=== PATIENT | female | born 1990 | race Caucasian/White ===

== ENCOUNTER 2017-03-06 19:05 | Emergency (ER) | payer OTHER ==
[2017-03-06] MEDS ORDERED: HYDROcodone/APAP 5/325MG 1 TAB TABLET (20:33)
[2017-03-06] MEDS: HYDROcodone/APAP 5/325MG 1 TAB TABLET PO (20:34)
== END 2017-03-06 20:35 | disposition home or self-care (01) ==
LOC: ER 19:05
DX: K04.7 Periapical abscess without sinus (principal); J45.909 Unspecified asthma, uncomplicated; Z91.040 Latex allergy status
CPT/HCPCS: 99283

== ENCOUNTER 2018-07-23 23:29 | Emergency (ER) | payer SELFPAY ==
[~2018-07-23] VITALS: Ht 157.5 cm; Wt 59.0 kg
[~2018-07-23 23:29] MED LIST: ACET-704 PO; AMOX500T PO; NAPR500T8 PO
[2018-07-23 23:36] VITALS: BP 108/65
[2018-07-24 01:01] LABS: BILIRUBIN,URINE SMALL (NEG); CLARITY,URINE CLEAR; COLOR,URINE YELLOW; NITRITE,URINE POSITIVE (NEG); PH,URINE 5.5; PROTEIN,URINE 100 mg/dL (NEG-TRACE)
[2018-07-24 01:07] LABS: BACTERIA,URINE MODERATE /HPF (0-FEW); SQUAMOUS EPITHELIAL CELL,UR FEW /LPF; WBC,URINE TNTC /HPF (0-4)
[2018-07-24 01:38] LABS: U PREG PATIENT NEGATIVE (NEG)
[2018-07-24] MEDS ORDERED: HYDROcodone/APAP 5/325MG 1 TAB TABLET PO ONE (01:45)
[2018-07-24] MEDS ORDERED: ONDANSETRON ODT 4 MG TAB.RAPDIS. PO ONE (01:45)
[2018-07-24] MEDS ORDERED: cefTRIAXone IM 1 GM VIAL IM ONE (01:45)
[2018-07-24] MEDS ORDERED: ONDA4TAB7 PO (01:50)
[2018-07-24] MEDS ORDERED: CEPH-264 PO (01:50)
[2018-07-24] MEDS ORDERED: HYDR-2761 PO (01:50)
[2018-07-24] MEDS ORDERED: SMZ/TMP 800/160MG TABLET. PO ONE (02:00)
--- NOTE | 2018-07-24 02:23 | PHYS DOC ---
Past Medical History Past Medical History: No Pertinent History, Asthma Past Surgical History: No Surgical History Alcohol Use: Occasionally Drug Use: None Adult General Chief Complaint Chief Complaint: BACK PAIN - NO INJURY HPI HPI Patient is a 28 year old female presents with right flank pain, nausea vomiting earlier today. Patient also reports urinary frequency urgency dysuria. Currently on menstrual period. No fever chills or sweats. History of urinary tract infections. Symptoms feel similar. No abdominal pain, tenderness. No other acute symptoms or complaints.[] Review of Systems Review of Systems Review of symptoms as per history of present illness. All other review symptoms are negative. All other systems were reviewed and found to be within normal limits, except as documented in this note. Current Medications Current Medications Current Medications Medications (Trade) Dose Ordered Sig/Sruthi Start Time Stop Time Status Last Admin Dose Admin Acetaminophen/ Hydrocodone Bitart (Lortab 5/325) 1 tab 1X ONCE 07/24/18 01:45 07/24/18 01:46 DC 07/24/18 01:44 1 TAB Ceftriaxone Sodium (Rocephin Im) 1 gm 1X ONCE 07/24/18 01:45 07/24/18 01:46 DC 07/24/18 01:42 1 GM Ondansetron HCl (Zofran Odt) 4 mg 1X ONCE 07/24/18 01:45 07/24/18 01:46 DC 07/24/18 01:44 4 MG Trimethoprim/ Sulfamethoxazole (Bactrim Ds) 1 tab 1X ONCE 07/24/18 02:00 07/24/18 02:01 Cancel Allergies Allergies Allergies Coded Allergies Type Severity Reaction Last Updated Verified latex Allergy Intermediate 02/09/15 Yes tramadol Allergy Intermediate ITCHY 03/06/17 Yes ibuprofen Adverse Reaction Intermediate N/V 03/06/17 Yes Physical Exam Physical Exam Constitutional: Well developed, well nourished, moderate discomfort secondary to apin. [] HENT: Normocephalic, atraumatic, bilateral external ears normal, oropharynx moist, no oral exudates, nose normal. [] Eyes: PERRLA, EOMI, conjunctiva normal, no discharge. [] Neck: Normal range of motion, no tenderness, supple, no stridor. [] Cardiovascular:Heart rate regular rhythm, no murmur [] Lungs & Thorax: Bilateral breath sounds clear to auscultation [] Abdomen: Bowel sounds normal, soft, no tenderness. [] Skin: Warm, dry, no erythema. [] Back: R CVA tenderness. [] Extremities: No tenderness, no cyanosis, no clubbing, ROM intact, no edema. [] Neurologic: Alert and oriented X 3, normal motor function, normal sensory function, no focal deficits noted. [] Psychologic: Affect normal, judgement normal, mood normal. [] Current Patient Data Vital Signs Vital Signs Date Time Temp Pulse Resp B/P (MAP) Pulse Ox O2 Delivery O2 Flow Rate FiO2 07/23/18 23:36 99.5 111 17 108/65 (79) 100 Room Air 99.5 Lab Values Laboratory Tests Test 07/24/18 00:35 Urine Collection Type Unknown Urine Color Yellow Urine Clarity Clear Urine pH 5.5 Urine Specific [place] >=1.030 Urine Protein 100 mg/dL (NEG-TRACE) Urine Glucose (UA) Negative mg/dL (NEG) Urine Ketones (Stick) Trace mg/dL (NEG) Urine Blood Large (NEG) Urine Nitrite Positive (NEG) Urine Bilirubin Small (NEG) Urine Urobilinogen Dipstick 1.0 mg/dL (0.2 mg/dL) Urine Leukocyte Esterase Moderate (NEG) Urine RBC 11-20 /HPF (0-2) Urine WBC Tntc /HPF (0-4) Urine Squamous Epithelial Cells Few /LPF Urine Bacteria Moderate /HPF (0-FEW) Urine Mucus Mod /LPF Urine Test Negative (NEG) EKG EKG [] Radiology/Procedures Radiology/Procedures [] Course & Med Decision Making Course & Med Decision Making Pertinent Labs and Imaging studies reviewed. (See chart for details) [Pain nausea addressed. First dose of antibiotics given in the emergency department. Will treat for pyelonephritis instructions to follow-up with PCP. Return precautions reviewed. Patient verbalizes understanding agreement discharge instructions prior to departure.] Dragon Disclaimer Dragon Disclaimer This electronic medical record was generated, in whole or in part, using a voice recognition dictation system. Departure Departure Impression: Primary Impression: Pyelonephritis Disposition: 01 HOME, SELF-CARE Condition: GOOD Patient Instructions: Pyelonephritis, Adult, [id number] Additional Instructions: You were evaluated in the emergency department for flank pain. Urinalysis this is consistent with urinary tract infection. Please increase fluids, take pain and nausea medication as directed and complete full course of antibiotics. Follow-up with your PCP in 3-5 days for reevaluation. Return to the ED if new or worsening symptoms. Scripts Cephalexin (KEFLEX) 500 Mg Capsule 1 CAP PO TID, #21 CAP Prov: CY GRAYSON DO 07/24/18 Ondansetron Hcl (ZOFRAN) 4 Mg Tablet 1 TAB PO Q6HRS, #10 TAB 0 Refills Prov: CY GRAYSON DO 07/24/18 Hydrocodone Bit/Acetaminophen (HYDROCODONE-APAP 5-325 ) 1 Tab Tablet 1 TAB PO PRN Q6HRS PRN for PAIN, #10 TAB 0 Refills Prov: CY GRAYSON DO 07/24/18 CY GRAYSON DO Jul 24, 2018 02:23
== END 2018-07-24 02:01 | disposition home or self-care (01) ==
LOC: ER 23:29
DX: N12 Tubulo-interstitial nephritis, not specified as acute or chronic (principal); R11.2 Nausea with vomiting, unspecified; J45.909 Unspecified asthma, uncomplicated; Z91.040 Latex allergy status; Z88.5 Allergy status to narcotic agent; Z88.6 Allergy status to analgesic agent
CPT/HCPCS: 81001; 81025; 87086; 96372; 99284; J0696; Q0162

== ENCOUNTER 2020-01-26 17:51 | Emergency (ER) | payer SELFPAY ==
[~2020-01-26] VITALS: Ht 157.5 cm; Wt 66.0 kg
[~2020-01-26 17:51] MED LIST changes: +AMOX1TAB58 PO; +CEPH-264 PO; +HYDR-2761 PO; +LACT1CAP19 PO; +ONDA4TAB7 PO
[2020-01-26 20:50] VITALS: BP 140/89
--- NOTE | 2020-01-26 22:38 | RAD ---
Exam: Left finger 3 views INDICATION: Injury TECHNIQUE: Frontal view of the left hand with oblique and lateral views of the fourth digit Comparisons: None FINDINGS: There is a mildly comminuted fracture to the middle phalanx of the fourth digit with intra-articular extension into the DIP joint. Mild surrounding soft tissue swelling. No other fractures are identified. Bone mineralization is normal. IMPRESSION: Comminuted fracture of the middle phalanx of the fourth digit with intra-articular extension. Electronically signed by: Davis Page MD (01/26/2020 10:35 PM) [facility]
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
== END 2020-01-26 23:10 | disposition home or self-care (01) ==
LOC: ER 17:51
DX: S62.625A Displaced fracture of middle phalanx of left ring finger, initial encounter for closed fracture (principal); F31.9 Bipolar disorder, unspecified; J45.909 Unspecified asthma, uncomplicated; F43.10 Post-traumatic stress disorder, unspecified; F17.200 Nicotine dependence, unspecified, uncomplicated; Z91.040 Latex allergy status; Z88.6 Allergy status to analgesic agent; Y08.89XA Assault by other specified means, initial encounter; Y93.89 Activity, other specified; Y92.89 Other specified places as the place of occurrence of the external cause; Y99.8 Other external cause status
CPT/HCPCS: 73140; 99283